=== PATIENT | male | born 1995 | race Caucasian/White ===

== ENCOUNTER 2023-06-24 20:59 | Inpatient (IN) | payer MEDICAID, SELFPAY ==
[2023-06-24 21:00] VITALS: BP 175/106; PULSE 119; RESP 18; TEMP 36.8; O2SAT 100; BMI 41.5
--- NOTE | 2023-06-24 21:20 | EX.ED.DYSGE1 ---
HPI <BUCKY Liz - Last Filed: 06/24/23 22:03> History of Present Illness Chief Complaint: Substance Abuse Narrative Narrative: Patient is a 27-year-old male with history of hepatitis C, followed by alcoholism who is been drinking heavily for the last 5 years. Patient states that he drinks 4 to 5 24 ounce [place] Hard Lemonade, patient also uses whiskey 3-4 shots a day. The last time patient went through a detox program was 2 years ago. Patient states that he has been more emotional lately, he states he is tired all the time. Every time he gets up in the morning he does vomit. He does continue to have chronic abdominal pain secondary to hepatitis. He does have a PCP. He does smoke cigarettes as well as uses mouth tobacco. Patient's last drink was right before coming into the emergency department. PFSH <BUCKY Liz - Last Filed: 06/24/23 22:03> [facility] Medical History (Updated 06/24/23 @ 22:[address] Alpa Diaz, DO) Alcohol abuse Hepatitis C Morbid obesity Tobacco abuse Allergy/AdvReac Type Severity Reaction Status Date / Time No Known Allergies Allergy Verified 06/24/23 21:02 Social History Smoking Status: Current every day smoker tobacco type: cigarettes ROS <BUCKY Liz - Last Filed: 06/24/23 22:03> ROS ED ROS Narrative Constitutional: Negative for fever, chills, weight loss, weakness. Positive for generalized fatigue Eyes: Negative for vision loss, vision change, double vision ENT: Negative for any sore throat, ear pain, congestion Cardiovascular: Negative for any chest pain, tightness, palpitations Respiratory: Negative for any cough, sputum production, hemoptysis, dyspnea, dyspnea on exertion, orthopnea Gastrointestinal: Negative for any nausea, vomiting, diarrhea, constipation, blood in stool, blood in vomit. Positive for abdominal pain that is chronic : Negative for any urinary frequency, dysuria, retention, blood in urine Muscle skeletal: Negative for any myalgias, arthralgias, neck pain, back pain Neurological: Negative for any headache, syncope, paresthesias, dizziness Skin: Negative for any rashes, lumps, itching, abrasions, lacerations Psychiatric: Negative for any depression, anxiety, stress, suicidal ideation, homicidal ideation Hematologic: Negative for any easy bruising, excessive bruising, easy bleeding Allergies: Negative for any eczema, hives, rash EXAM <BUCKY Liz - Last Filed: 06/24/23 22:03> Physical Exam Narrative Exam Narrative: Vital signs reviewed. HEET: Head normocephalic atraumatic, TMs clear bilaterally. Posterior pharynx is clear, dry mucous membranes. Nares clear bilaterally. Sclera icterus Neck: Supple with no lymphadenopathy or tenderness. No signs of meningismus. Cardiac: Regular rate and rhythm no murmurs gallops or rubs, equal peripheral pulses bilaterally. Respiratory: Lungs clear to auscultation bilaterally. No chest tenderness. Abdomen: Soft, nontender, nondistended. No abdominal bruit or pulsatile masses. No hepatosplenomegaly Extremities: No peripheral edema, no signs of gross trauma or deformity. Active full range of motion of all extremities. Neuro: Cranial nerves II through XII intact, no focal neurological deficits. Skin: Clean dry and intact with no rash, purpura, petechiae, vesicles or pustules. Patient does have slight jaundice appearance Backs/flank: No CVA tenderness, no midline spinal tenderness, no deformity. Psych: Normal mood and affect. No SI, HI or acute psychosis. Const Vital Signs: 06/24/23 21:00 Temperature 98.3 F Temperature Source Temporal Pulse Rate 119 H Respiratory Rate 18 Blood Pressure 175/106 H Blood Pressure Mean 129 Pulse Ox 100 Oxygen Delivery Method Room Air Positive well nourished, well developed and obese General Appearance ED: well developed Nutritional Appearance: obese <Dr. Ozzy Johnson MD - Last Filed: 06/24/23 22:34> Physical Exam Const Vital Signs: 06/24/23 21:00 Temperature 98.3 F Temperature Source Temporal Pulse Rate 119 H Respiratory Rate 18 Blood Pressure 175/106 H Blood Pressure Mean 129 Pulse Ox 100 Oxygen Delivery Method Room Air MDM <BUCKY Liz - Last Filed: 06/24/23 22:03> MDM Lab Data Labs: Laboratory Results - last 24 hr 06/24/23 06/24/23 21:19 21:28 WBC 8.9 RBC 3.61 L Hgb 11.3 L Hct 33.6 L MCV 93.1 MCH 31.3 MCHC 33.6 RDW Std Deviation 48.0 H RDW Coeff of Shaniqua 14.1 Plt Count 67 L MPV 11.2 Immature Gran % (Auto) 0.400 Neut % (Auto) 65.2 Lymph % (Auto) 24.7 [place] % (Auto) 7.8 Eos % (Auto) 1.2 Baso % (Auto) 0.7 Absolute Neuts (auto) 5.8 Absolute Lymphs (auto) 2.20 Nucleated RBC % 0 Differential Comment SCANNED Sodium 133 L Potassium 3.1 L Chloride 97 L Carbon Dioxide 28.0 Anion Gap 8 BUN 3 L Creatinine 1.06 Estim Creat Clear Calc 136.63 Est GFR (MDRD) Af Amer 109 Est GFR (MDRD) Non-Af 90 BUN/Creatinine Ratio 2.8 L Glucose 219 H Calcium 8.6 Total Bilirubin 8.00 H Direct Bilirubin 3.96 H AST 180 H ALT 45 Alkaline Phosphatase 109 Total Protein 9.4 H Albumin 2.9 L Globulin 6.5 H Urine Opiates Screen NEGATIVE Urine Methadone Screen NEGATIVE Ur Barbiturates Screen NEGATIVE Ur Phencyclidine Scrn NEGATIVE Ur Amphetamines Screen NEGATIVE MDMA (Ecstasy) Screen NEGATIVE U Benzodiazepines Scrn NEGATIVE Urine Cocaine Screen NEGATIVE U Cannabinoids Screen NEGATIVE Ur Drug Screen Comment Ethyl Alcohol 264.0 Treatment and Re-Evaluation :: Patient appears to be in no obvious respiratory distress. Patient presents to the emergency department for complaints of detox from alcohol. Patient differential diagnosis includes alcohol withdrawal, alcohol intoxication, hepatitis C, hyperbilirubinemia, anxiety, depression. At this time, patient will be given IV fluids, nicotine patch. Patient will receive laboratory values including EtOH as well as liver panel. Patient is alcohol is 264, the remainder of the toxicology screen was negative. Patient's CBC showed slight anemia with a hemoglobin 11.3. Patient's chemistry panel shows a potassium 3.1, sodium 133, total bilirubin is 8.0 with a direct bilirubin of 3.96. AST is 180. This does coincide with hepatitis C as well as alcohol abuse. PT/INR will be ordered. Patient was given a nicotine patch. At this time, I spoke with hospitalist, patient be admitted to the hospital. <Dr. Ozzy Johnson MD - Last Filed: 06/24/23 22:34> [facility] Narrative Medical decision making narrative: I have personally performed a face to face assessment of the patient and have reviewed the TYREL Note. I performed a substantive portion of the visit including all aspects of the following. My roberts findings include: History: Patient is here for alcohol detox. He states he has been drinking on daily basis for 5 or 6 years. He will have 4 to 6 24 ounce fortified 8% beers a day along with about a half bottle of liquor. If he does not drink he gets shaky and nauseated. He has to drink before work. He also has a history of hepatitis C. He evidently started a medication recently for this. I note that he looks a little jaundiced and his mother says that she thinks this has increased slightly over the last month or so. But he is having no hepatic area pain or abdominal pain. Mom also reports that he had a head bleed when he was born and had seizures when he was younger. But he has not had a seizure since he was 15. Patient is not having no headache symptoms at all. No recent trauma. There is family history of addiction and his father has drug addiction problems. Exam: Patient is awake alert no acute distress. He is calm. No flight of ideas. He does have some icterus. Lungs are clear. Heart rate is a little bit quick. Abdomen is obese but benign. I get no tenderness including right upper quadrant. Patient is oriented. No hallucinations. No piloerection noted. Medical Decision Making: Patient will have medical evaluation. I suspect his bilirubin is going to be elevated. Plan will be admission for detox. Lab Data Labs: Laboratory Results - last 24 hr 06/24/23 06/24/23 21:19 21:28 WBC 8.9 RBC 3.61 L Hgb 11.3 L Hct 33.6 L MCV 93.1 MCH 31.3 MCHC 33.6 RDW Std Deviation 48.0 H RDW Coeff of [place] 14.1 Plt Count 67 L MPV 11.2 Immature Gran % (Auto) 0.400 Neut % (Auto) 65.2 Lymph % (Auto) 24.7 [place] % (Auto) 7.8 Eos % (Auto) 1.2 Baso % (Auto) 0.7 Absolute Neuts (auto) 5.8 Absolute Lymphs (auto) 2.20 Nucleated RBC % 0 Differential Comment SCANNED Sodium 133 L Potassium 3.1 L Chloride 97 L Carbon Dioxide 28.0 Anion Gap 8 BUN 3 L Creatinine 1.06 Estim Creat Clear Calc 136.63 Est GFR (MDRD) Af Amer 109 Est GFR (MDRD) Non-Af 90 BUN/Creatinine Ratio 2.8 L Glucose 219 H Calcium 8.6 Total Bilirubin 8.00 H Direct Bilirubin 3.96 H AST 180 H ALT 45 Alkaline Phosphatase 109 Total Protein 9.4 H Albumin 2.9 L Globulin 6.5 H Urine Opiates Screen NEGATIVE Urine Methadone Screen NEGATIVE Ur Barbiturates Screen NEGATIVE Ur Phencyclidine Scrn NEGATIVE Ur Amphetamines Screen NEGATIVE MDMA (Ecstasy) Screen NEGATIVE U Benzodiazepines Scrn NEGATIVE Urine Cocaine Screen NEGATIVE U Cannabinoids Screen NEGATIVE Ur Drug Screen Comment Ethyl Alcohol 264.0 Discharge Plan Dx/Rx/DC Orders Clinical Impression: Hyperbilirubinemia, Elevated ETOH level, Acholuric jaundice, Hepatitis C Disposition Disposition: Acute Care [facility], [place]
[2023-06-24 21:39] LABS: Absolute Neutrophil Count 5.8 X10^3/uL (2.0-7.7); Basophil# 0.06 X10^3/uL; Basophil% 0.7 % (0-1); Eosinophil# 0.11 X10^3/uL; Eosinophils% 1.2 % (0-5); Hematocrit 33.6 % (40-54); Hemoglobin 11.3 g/dL (13.0-16.5); Lymphocyte % 24.7 % (19-41); Mean Corp Hgb Conc 33.6 g/dL (32-36); Mean Corpuscular Hgb 31.3 pg (27.0-32.0); Mean Corpuscular Volume 93.1 fL (80-94); Mean Platelet Vol. 11.2 fl (6.2-12.0); Monocyte% 7.8 % (0-10); NRBC Flagged by Analyzer 0 % (0-5); Neutrophil # 5.81 X10^3/uL (2.7-7.7); Neutrophil % 65.2 % (47-70); POSITIVE COUNT YES; Platelet Count 67 K/mm3 (150-450); RBC Distribution Width CV 14.1 % (11.6-14.6); Red Blood Count 3.61 M/mm3 (4.6-6.2); White Blood Count 8.9 K/mm3 (4.4-11.0)
[2023-06-24] MEDS: 0.9% Normal Saline (1000mL) 1,000 ML 999 ML IV (21:39)
[2023-06-24 21:47] LABS: Amphetamine Urine VISTA NEGATIVE (<1000 ng/mL); Barbiturate Urine VISTA NEGATIVE (< 200 ng/mL); Benzodiazepine Urine VISTA NEGATIVE (< 200 ng/mL); Cocaine Urine VISTA NEGATIVE (< 300 ng/mL); Ecstacy Urine VISTA NEGATIVE (< 500 ng/mL); Methadone Urine VISTA NEGATIVE (< 300 ng/mL); PCP Urine VISTA NEGATIVE (< 25 ng/mL); THC Urine VISTA NEGATIVE (< 50 ng/mL); Vista UDS pH Range 5
[2023-06-24 21:54] LABS: AST(SGOT) 180 U/L (15-37); Alanine Aminotransfer ALT/SGPT 45 U/L (16-61); Albumin, Serum 2.9 g/dL (3.2-5.0); Alkaline Phosphatase 109 U/L (45-117); Anion Gap 8 (5-15); BUN 3 mg/dL (7-18); BUN/Creat Ratio 2.8 RATIO (10-20); Bilirubin, Direct 3.96 mg/dL (0.00-0.30); Calcium,Total 8.6 mg/dL (8.5-10.1); Chloride 97 mmol/L (98-107); Creatinine, Serum 1.06 mg/dL (0.70-1.30); EST Glomerular Filtration Rate 90 mL/min (>60); Est Glom Filt Rate - Afr Amer 109 mL/min (>60); Estimated Creatinine Clearance 136.63 ml/min; Globulin 6.5 g/dL (2.2-4.2); Glucose 219 mg/dL (74-106); Potassium 3.1 mmol/L (3.5-5.1); Protein, Total 9.4 g/dL (6.4-8.2); Sodium Level 133 mmol/L (136-145)
[2023-06-24 21:59] LABS: Differential Indicated SCAN CRITERIA MET
--- NOTE | 2023-06-24 22:08 | US_ITS ---
EXAM: US abdomen, limited, right upper quadrant. HISTORY: elevated bilirubin TECHNIQUE: US Abdomen Limited (quadrant) COMPARISON: None. LIMITATIONS: Body habitus. LIVER Size: Liver is enlarged measuring 24.5 cm in length. Masses: None. Contour: Normal. Echotexture: Increased parenchymal echogenicity indicating fatty infiltration. Bile ducts: Normal. Portal veins: Normal. Normal hepatopedal flow. GALLBLADDER Size: Gallbladder is elongated measuring 13.4 cm in length by 3.2 cm in transverse diameter. Stones/sludge: None. Wall thickness: Borderline thickening of the wall which measures 3.4 mm in thickness. Pericholecystic fluid: None. Sonographic Hernandez sign: Negative. EXTRAHEPATIC BILE DUCTS: Normal. Common bile duct measures 5.1 mm in diameter. RIGHT KIDNEY: Normal. Right kidney measures 12.5 cm in length. No hydronephrosis. ASCITES: None. PLEURAL EFFUSIONS: None. OTHER: Visualized pancreas is unremarkable. US/Liver IMPRESSION: Enlarged fatty liver. No gallstones or biliary ductal dilatation. Electronically Signed: Justyn Rothman MD at 0:08 EST ,
--- NOTE | 2023-06-24 22:08 | HP.PCM.HOS_ITS ---
HPI - General General Date of Admission: 06/24/23 Date of Service: 06/24/23 Chief Complaint: Alcohol detox HPI Narrative BREEZY RIVERA, is a 27 M who presented to the emergency department hospital on 06/24/2021 requesting detox from alcohol. Patient reports about 2 to 3 years ago he was admitted to a rehab center after he got a DUI but did not have any long- lasting sobriety after that. He is currently drinking about 5 [place] hard lemona de daily that are 24 ounces as well as a half 1/5-1/5 of his last drink was 2 hours prior to presentation. He does state he has 7 drinks in the morning as he starts to feel nauseated and will intermittently vomit. Drinking helps resolve the symptoms. He has never had withdrawal seizures. He also admits to having hepatitis C which she obtained from tattoos that he got from his father as they share needles and his father was hepatitis C positive from previous drug use. He is currently undergoing treatment for his hepatitis C but is unable to remember the exact name of the medication. He denies any other drug use but does admit to tobacco use both smoking and chewing. Patient states he does take more medications besides his metformin and his antiviral for his hepatitis C but is unable to remember at this time. He indicates he will get a medication list for us from his mother. Vital signs on presentation demonstrated temperature of 98.3, heart rate 119, blood pressure 175/106, respiratory rate was 18 oxygen saturation is 100% on room air. CBC shows a normal white count however he has a mild anemia that is normocytic with a hemoglobin of 11.3. His platelet count is 67,000. Baseline is unknown. Coags are abnormal with a PT of 20.3 and an INR of 1.7. Chemistry panel shows sodium of 133, potassium 3.1. Renal function is normal. His blood glucose level is markedly elevated at 219. AST is 180 with a normal ALT however his bilirubin is markedly elevated at 8.0 with a direct bilirubin of 3.96. Toxicology screen is unremarkable but alcohol level was 264 on presentation. [facility] Medical History (Updated 06/24/23 @ 23:[address] Alpa Diaz, DO) Alcohol abuse Diabetes mellitus, type 2 Hepatitis C Morbid obesity Tobacco abuse Allergy/AdvReac Type Severity Reaction Status Date / Time No Known Allergies Allergy Verified 06/24/23 21:02 Family History (Updated 06/24/23 @ 23:[address] Alpa Diaz DO) Other Alcoholism Hypertension no surgical history Social History (Updated 06/24/23 @ 23:[address] Alpa Diaz DO) household members: family housing: house current occupation: Drives a forklift at a [employer] Smoking Status: Current every day smoker tobacco type: cigarettes Smoking packs per day: 1 Smoking cigarettes per day: 20.0 Smokeless tobacco user: chewing tobacco alcohol intake: current details: 5 24 ounce [place] hard lemonade and 12-05/28 of whiskey daily substance use type: does not use what type of physical activity do you participate in: none ROS Constitutional Constitutional: Denies anorexia, change in weight, chills, fatigue, fever(s), malaise, night sweats, weakness or other Eyes Eyes: Denies blurry vision, change in eye color, change in vision, discharge from eye(s), double vision, erythema, eye pain, loss of vision or other ENT HEENT: Denies abnormal hearing, dysphagia, ear pain, epistaxis, headache(s), hearing loss, nasal congestion, nasal discharge, post nasal drip, sinus pressure, sore throat or other Cardiovascular Cardiovascular: Denies chest pain, claudication, dyspnea on exertion, edema, lightheadedness, orthopnea, palpitations, paroxysmal nocturnal dyspnea, rapid heart rate, syncope or other Respiratory/Chest Respiratory/Chest: Denies cough, dyspnea, excessive phlegm production, hemoptysis, productive cough, shortness of breath at rest, shortness of breath with exertion, wheezing or other Gastrointestinal Gastrointestinal: Reports abdominal pain and nausea; Denies coffee ground emesis, constipation, diarrhea, dyspepsia, hematemesis, hematochezia, loose stools, melena, vomiting or other Genitourinary Genitourinary: Denies burning urination, difficulty urinating, dysuria, hematuria, nocturia, urinary frequency, urinary hesitancy, urinary incontinence, urinary urgency or other Musculoskeletal Musculoskeletal: Denies arthralgias, back pain, joint pain, joint stiffness, joint swelling, myalgias, neck pain or other Neurologic Neurologic: Denies abnormal gait, abnormal speech, confusion, disequilibrium, dizziness, focal weakness, headache(s), numbness, paresthesias, seizure-like activity, seizures, syncope, tingling, tremor(s) or other Psychiatric Psychiatric: Reports anxiety and depression; Denies homicidal ideation, suicidal ideation or other Endocrine Endocrinology: Denies change in body appearance, cold intolerance, excessive sweating, heat intolerance, polydipsia, polyuria or other Hematologic/Lymphatic Hematologic/Lymphatic: Reports easy bruising; Denies anemia, easy bleeding, lymphadenopathy or other Allergic/Immunologic Allergic/Immunologic: Denies rhinitis, hives, eczemia, asthma or other Vital Signs Vital Signs Vital Signs: 06/24/23 21:00 Temperature 98.3 F Temperature Source Temporal Pulse Rate 119 H Respiratory Rate 18 Blood Pressure 175/106 H Blood Pressure Mean 129 Pulse Ox 100 Oxygen Delivery Method Room Air Weight Weight: 124.086 kg Body Mass Index (BMI) 41.5 Physical Exam Const alert, oriented x3, no apparent distress and well nourished; Negative for average body habitus or healthy appearing Constitutional Narrative: Morbidly obese, young, white male, sitting up in bed, appears comfortable and nontoxic, no signs of tremor, interacts appropriately General Appearance: cooperative HEENT normocephalic, head/scalp atraumatic, hearing grossly normal bilaterally and moist oral mucous membranes HEENT Narrative: Mallampati 3, dentition is good, no thrush Eyes PERRL, EOMs intact bilaterally and conjunctivae normal Eyes Narrative: Scleral icterus noted Neck no lymphadenopathy and supple Neck Narrative: Trachea midline, no thyroid enlargement, neck is short and thick Cardio regular rhythm, S1 normal heart sound, S2 normal heart sound, no murmurs, no rub, no gallops and no clicks Cardio Narrative: Tachycardic GI normal to inspection, nondistended, normoactive bowel sounds and soft to palpation GI Narrative: Mild diffuse tenderness with most notably noted in the epigastrium and right upper quadrant Extremity no clubbing, cyanosis or edema Extremity Narrative: Pedal pulses are 2+ Skin no wounds, skin turgor normal, No no jaundice and no mottling Skin Narrative: Mild jaundice noted, few scattered ecchymotic areas noted Neuro oriented x3, CN's II-XII intact bilaterally, moves all extremities and no focal motor deficits Neuro Narrative: No tremor noted Speech: speech normal Psych affect normal Psych Narrative: Very pleasant, interacts appropriately, appears mildly anxious Mood & Affect: anxious Results Lab / Micro Data Attestation: I reviewed the patient's lab results. 06/24/23 21:28 06/24/23 21:28 Labs: Laboratory Results - last 24 hr 06/24/23 21:19: Urine Opiates Screen NEGATIVE, Urine Methadone Screen NEGATIVE, Ur Barbiturates Screen NEGATIVE, Ur Phencyclidine Scrn NEGATIVE, Ur Amphetamines Screen NEGATIVE, MDMA (Ecstasy) Screen NEGATIVE, U Benzodiazepines Scrn NEGATIVE, Urine Cocaine Screen NEGATIVE, U Cannabinoids Screen NEGATIVE, Ur Drug Screen Comment 06/24/23 21:28: WBC 8.9, RBC 3.61 L, Hgb 11.3 L, Hct 33.6 L, MCV 93.1, MCH 31.3, MCHC 33.6, RDW Std Deviation 48.0 H, RDW Coeff of [place]iqua 14.1, Plt Count 67 L, MPV 11.2, Immature Gran % (Auto) 0.400, Neut % (Auto) 65.2, Lymph % (Auto) 24.7, [place] % (Auto) 7.8, Eos % (Auto) 1.2, Baso % (Auto) 0.7, Absolute Neuts (auto) 5.8, Absolute Lymphs (auto) 2.20, Nucleated RBC % 0, Sodium 133 L, Potassium 3.1 L, Chloride 97 L, Carbon Dioxide 28.0, Anion Gap 8, BUN 3 L, Creatinine 1.06, Estim Creat Clear Calc 136.63, Est GFR (MDRD) Af Amer 109, Est GFR (MDRD) Non-Af 90, BUN/Creatinine Ratio 2.8 L, Glucose 219 H, Calcium 8.6, Total Bilirubin 8.00 H, Direct Bilirubin 3.96 H, AST 180 H, ALT 45, Alkaline Phosphatase 109, Total Protein 9.4 H, Albumin 2.9 L, Globulin 6.5 H, Ethyl Alcohol 264.0 Assessment & Plan Assessment/Plan (1) Hyperbilirubinemia: (2) Elevated ETOH level: (3) Acholuric jaundice: (4) Tachycardia: (5) Anemia: (6) Thrombocytopenia: (7) Elevated blood pressure reading: (8) Hypokalemia: (9) Hyponatremia: (10) Hyperglycemia: (11) Alcoholic hepatitis: PLAN: Plan Alcohol detox with pending alcohol withdrawal -Patient was legally intoxicated on presentation with a blood alcohol level of 264 -Rest of his toxicology screen was negative -Start phenobarbital taper -Thiamine and folate -Supportive medication for symptom management -CIWA with as needed Ativan for any breakthrough withdrawal symptoms -Consult 180 for assistance with discharge planning Tachycardia/Elevated blood pressure -Suspect related to acute withdrawal -Continue to monitor -As needed hydralazine available for systolic pressures that are consistently greater than 160 -Continue to monitor -If antihypertensive needed lisinopril would likely be a choice with his history of diabetes DM-2 with hyperglycemia -Patient is on metformin at home and states he takes this fairly regularly however does admit to missing a few doses intermittently -Check hemoglobin A1c -Lantus 16 units at at bedtime as he will be on steroids for alcoholic hepatitis -Accu-Cheks as ordered -SSI -Carb controlled diet Hyponatremia -Mild -Baseline is unclear however this may be acute related to his alcohol use -Repeat lab in a.m. Hypokalemia -40 mEq p.o. potassium given -Check a.m. magnesium level -Repeat lab in a.m. Anemia -Would not typically expect a 27-year-old male to be anemic and less there was something causing some blood loss -Baseline unknown -Check iron studies -Check guaiac stool -Start Protonix 20 mg daily orally Thrombocytopenia -Suspect chronic however unknown -Platelet count of 67,000 -Anticipate the patient may have cirrhosis and his thrombocytopenia may be related to splenomegaly due to sequestration versus marrow toxicity from alcohol -Repeat CBC in a.m. Alcoholic hepatitis with hyperbilirubinemia with jaundice -Baseline liver functions and bilirubin is unknown -Check INR -Maddrey score is 32.8 -Start prednisone 40 mg daily -Check right upper quadrant ultrasound -GI consultation pending History hepatitis C -Patient reports she has being treated currently but currently unable to remember which medication -Imaging pending -GI consult pending Morbid obesity -BMI 41.6 -Recommend weight loss -Complicates treatment, prognosis, outcomes DVT prophylaxis -Low risk -Recommend early and frequent ambulation CODE STATUS Full code Charges/Coding Visit Charges Inpatient E&M: 58249 Init Hosp L3
[2023-06-24 22:13] VITALS: BP 150/81; PULSE 115; RESP 22; O2SAT 99
[2023-06-24 22:29] LABS: Differential Comment SCANNED
--- NOTE | 2023-06-24 22:32 | ED.RN ---
Pt is unaware of home medications.
[2023-06-24 22:35] LABS: International Normalized Ratio 1.7; Prothrombin Time (Protime)PT. 20.3 SECONDS (11.7-14.9)
--- NOTE | 2023-06-24 22:35 | ED.RN ---
Update given to pt mother about plan of care.
[2023-06-24 22:36] LABS: Ferritin 729 ng/mL (26-388); Iron 138 ug/dL (65-175); Iron Binding Capacity,Total 142 ug/dL (250-450); PERCENT IRON SATURATION 97.2 % (15.0-55.0)
[2023-06-24 22:50] LABS: Hemoglobin A1c 5.4 % (3.8-5.6)
[2023-06-24 23:12] VITALS: BMI 40.6
[2023-06-24 23:18] VITALS: BP 144/86; PULSE 113; RESP 18; TEMP 37.2; O2SAT 97
[2023-06-24] MEDS: Phenobarbital 32.4 MG Tablet 64.7999999999999972 MG PO (23:33)
[2023-06-24] MEDS: hydrOXYzine PAM 25 MG Capsule 50 MG PO (23:33)
[2023-06-24] MEDS: Potassium Chloride Oral Tablet 20 MEQ 60 MEQ PO (23:33)
[2023-06-24] MEDS: predniSONE 20 MG Tablet 40 MG PO (23:33)
[2023-06-25 00:15] LABS: Bedside Glucose 110 mg/dL (74-106)
[2023-06-25] MEDS: Phenobarbital 32.4 MG Tablet 64.7999999999999972 MG PO ×6 (02:27→22:25)
[2023-06-25 06:15] VITALS: BP 160/83; PULSE 104; RESP 16; TEMP 37; O2SAT 97
[2023-06-25 06:20] LABS: Hematocrit 31.5 % (40-54); Hemoglobin 10.9 g/dL (13.0-16.5); Mean Corp Hgb Conc 34.6 g/dL (32-36); Mean Corpuscular Hgb 32.4 pg (27.0-32.0); Mean Corpuscular Volume 93.8 fL (80-94); Mean Platelet Vol. 11.1 fl (6.2-12.0); POSITIVE COUNT YES; Platelet Count 59 K/mm3 (150-450); RBC Distribution Width SD 47.6 fl (35.1-43.9); Red Blood Count 3.36 M/mm3 (4.6-6.2); White Blood Count 5.7 K/mm3 (4.4-11.0)
[2023-06-25] MEDS: Insulin Lispro 100 UNIT/ML INSULN.PEN SC (06:33)
[2023-06-25] MEDS: hydrOXYzine PAM 25 MG Capsule 50 MG PO ×2 (06:33→22:25)
[2023-06-25 06:34] VITALS: BP 160/83; PULSE 104
[2023-06-25] MEDS: hydrALAZINE 20 MG/ML Vial 10 MG IV ×2 (06:34→15:38)
[2023-06-25] MEDS: 0.9% Saline Lock 10 ML Syringe IV ×2 (06:34→15:38)
[2023-06-25 06:35] LABS: Bedside Glucose 151 mg/dL (74-106)
[2023-06-25 06:38] LABS: ERROR RESULT FLAG YES
[2023-06-25 06:45] LABS: ALB/GLOB Ratio 0.4 RATIO (0.9-2.4); AST(SGOT) 166 U/L (15-37); Alanine Aminotransfer ALT/SGPT 41 U/L (16-61); Albumin, Serum 2.7 g/dL (3.2-5.0); Alkaline Phosphatase 107 U/L (45-117); Anion Gap 5 (5-15); BUN 3 mg/dL (7-18); BUN/Creat Ratio 3.8 RATIO (10-20); Calcium,Total 8.1 mg/dL (8.5-10.1); Chloride 102 mmol/L (98-107); Creatinine, Serum 0.79 mg/dL (0.70-1.30); EST Glomerular Filtration Rate 126 mL/min (>60); Est Glom Filt Rate - Afr Amer 152 mL/min (>60); Estimated Creatinine Clearance 180.92 ml/min; Globulin 6.1 g/dL (2.2-4.2); Glucose 152 mg/dL (74-106); Magnesium 1.9 mg/dL (1.6-2.6); Phosphorus 2.7 mg/dL (2.5-4.9); Potassium 3.9 mmol/L (3.5-5.1); Protein, Total 8.8 g/dL (6.4-8.2); Sodium Level 133 mmol/L (136-145)
[2023-06-25 08:56] VITALS: BP 163/99; PULSE 131; RESP 18; TEMP 37.1; O2SAT 98
[2023-06-25] MEDS: predniSONE 20 MG Tablet 40 MG PO (09:06)
[2023-06-25] MEDS: Folic Acid 1 MG Tablet PO (09:06)
[2023-06-25] MEDS: Gabapentin 300 MG Capsule PO (09:06)
[2023-06-25] MEDS: Pantoprazole Sodium 20 MG Tablet PO (09:06)
[2023-06-25] MEDS: Thiamine Hydrochloride 100 MG Tablet PO (09:06)
--- NOTE | 2023-06-25 10:54 | ADDICTION ---
clinician met with client to discuss sx's, hx of use, and further tx. client reported a need to remain sober and seek sober support in his life; mother and 2nd cousin. he also endorsed a need to get back to his sabianist beliefs/rastafari. client appears ambivalent towards buttermaker change and sobriety. client denied a need for further AoD tx. clinician discussed local tx options and advised client he could contact [facility] in the future for additional sober support or tx options. Client will have mother transport him home upon release.
[2023-06-25 11:44] LABS: Bedside Glucose 127 mg/dL (74-106)
--- NOTE | 2023-06-25 12:29 | PN.HOSP_ITS ---
Subjective Subjective No issues overnight, CIWA score 0 this morning Objective Data Objective Data Vital Signs: Vital Signs Temp Pulse Resp BP Pulse Ox O2 Del Method 98.7 F 131 H 18 163/99 H 98 Room Air 06/25/23 08:56 06/25/23 08:56 06/25/23 08:56 06/25/23 08:56 06/25/23 08:56 06/25/23 08:56 Oxygen Delivery Method Room Air Weight: 267 lb Body Mass Index (BMI) 40.6 Intake & Output: Intake and Output for Last 24 Hours 06/24/23 06/25/23 06/26/23 03:59 03:59 03:59 Intake Total 1100 / 1100 600 / 600 Balance 1100 / 1100 600 / 600 Lab / Micro Data 06/25/23 05:09 06/25/23 05:09 Labs: Laboratory Results - last 24 hr 06/24/23 21:19: Urine Opiates Screen NEGATIVE, Urine Methadone Screen NEGATIVE, Ur Barbiturates Screen NEGATIVE, Ur Phencyclidine Scrn NEGATIVE, Ur Amphetamines Screen NEGATIVE, MDMA (Ecstasy) Screen NEGATIVE, U Benzodiazepines Scrn NEGATIVE, Urine Cocaine Screen NEGATIVE, U Cannabinoids Screen NEGATIVE, Ur Drug Screen Comment 06/24/23 21:28: WBC 8.9, RBC 3.61 L, Hgb 11.3 L, Hct 33.6 L, MCV 93.1, MCH 31.3, MCHC 33.6, RDW Std Deviation 48.0 H, RDW Coeff of Shaniqua 14.1, Plt Count 67 L, MPV 11.2, Immature Gran % (Auto) 0.400, Neut % (Auto) 65.2, Lymph % (Auto) 24.7, [place] % (Auto) 7.8, Eos % (Auto) 1.2, Baso % (Auto) 0.7, Absolute Neuts (auto) 5.8, Absolute Lymphs (auto) 2.20, Nucleated RBC % 0, Differential Comment SCANNED, Sodium 133 L, Potassium 3.1 L, Chloride 97 L, Carbon Dioxide 28.0, Anion Gap 8, BUN 3 L, Creatinine 1.06, Estim Creat Clear Calc 136.63, Est GFR (MDRD) Af Amer 109, Est GFR (MDRD) Non-Af 90, BUN/Creatinine Ratio 2.8 L, Glucose 219 H, Hemoglobin A1c 5.4, Calcium 8.6, Iron 138, TIBC 142 L, Iron Saturation 97.2 H, Ferritin 729 H, Total Bilirubin 8.00 H, Direct Bilirubin 3.96 H, AST 180 H, ALT 45, Alkaline Phosphatase 109, Total Protein 9.4 H, Albumin 2.9 L, Globulin 6.5 H, Ethyl Alcohol 264.0 06/24/23 22:08: PT 20.3 H, INR 1.7 06/24/23 23:31: POC Glucose 110 H 06/25/23 05:09: WBC 5.7, RBC 3.36 L, Hgb 10.9 L, Hct 31.5 L, MCV 93.8, MCH 32.4 H, MCHC 34.6, RDW Std Deviation 47.6 H, RDW Coeff of Shaniqua 14.0, Plt Count 59 L, MPV 11.1, Sodium 133 L, Potassium 3.9, Chloride 102, Carbon Dioxide 26.0, Anion Gap 5, BUN 3 L, Creatinine 0.79, Estim Creat Clear Calc 180.92, Est GFR (MDRD) Af Amer 152, Est GFR (MDRD) Non-Af 126, BUN/Creatinine Ratio 3.8 L, Glucose 152 H, Calcium 8.1 L, Phosphorus 2.7, Magnesium 1.9, Total Bilirubin 7.10 H, AST 166 H, ALT 41, Alkaline Phosphatase 107, Total Protein 8.8 H, Albumin 2.7 L, Globulin 6.1 H, Albumin/Globulin Ratio 0.4 L 06/25/23 06:17: POC Glucose 151 H 06/25/23 11:23: POC Glucose 127 H Radiography Diagnostic Testing: Radiology Impression Liver Ultrasound 06/24/23 22:08 IMPRESSION: Enlarged fatty liver. No gallstones or biliary ductal dilatation. Electronically Signed: Justyn Rothman MD at 0:08 EST , Physical Exam Narrative General: Alert, Oriented x3, Cooperative, restless HEENT: Atraumatic, PERRLA, EOMI, Normocephalic scleral icterus Oral: Moist Mucosa Neck: Supple, No JVD Lungs: Clear to auscultation, Normal air movement, No rhonchi, No wheeze, No rales Cardiovascular: Regular rate, Regular Rhythm, Normal S1, Normal S2, No murmurs Abdomen: Soft, Non Tender, Non-Distended, No Hepato-splenomegaly Extremities: No edema, Capillary Refill Less than 3 Seconds Skin: No rashes, No breakdown, jaundice Musculoskeletal: No Tenderness to Palpation of Joints or Extremities Neurological: No focal neurological deficits, Motor Exam 5/5 strength througho ut, Sensory exam intact to light touch and pain Psych/Mental Status: Anxious, restless Assessment & Plan Assessment/Plan (1) Hyperbilirubinemia: (2) Acholuric jaundice: (3) Thrombocytopenia: (4) Elevated blood pressure reading: (5) Alcoholic hepatitis: PLAN: Plan 1. Alcohol detox in the setting of alcoholic hepatitis with hyperbilirubinemia/thrombocytopenia/hepatitis C ? Continue with the alcohol withdrawal protocol ? His Madrey score on admission was around 46, started on prednisone. Gastroenterology consulted ? Anemia is likely secondary to his chronic liver disease as this is thrombocytopenia will monitor ? Can resume his home hepatitis medication when able 2. DM2 ? A1c of 5.4 ? Continue with insulin ? Accu-Cheks ACHS ? We will monitor make adjustments as necessary DVT: Ambulation Charges/Coding Visit Charges Inpatient E&M: 79227 Subs Hosp L2
[2023-06-25 15:00] VITALS: BP 174/108; PULSE 125; RESP 16; TEMP 36.9; O2SAT 95
[2023-06-25 15:38] VITALS: PULSE 125
--- NOTE | 2023-06-25 16:01 | CON.PCM.GI_ITS ---
HPI Consult Data Date of Consult: 06/25/23 HPI Narrative Reason for Consultation: Alcoholic hepatitis HPI Narrative: BREEZY RIVERA, is a 27 M who presented to the emergency department hospital on 06/24/2021 requesting detox from alcohol. Patient reports about 2 to 3 years ago he was admitted to a rehab center after he got a DUI but did not have any long- lasting sobriety after that. He is currently drinking about 5 mikes hard lemonade daily that are 24 ounces as well as a half 1/5-1/5 of his last drink was 2 hours prior to presentation. He does state he has 7 drinks in the morning as he starts to feel nauseated and will intermittently vomit. Drinking helps resolve the symptoms. He has never had withdrawal seizures. He also admits to having hepatitis C which she obtained from tattoos that he got from his father as they share needles and his father was hepatitis C positive from previous drug use. He is currently undergoing treatment for his hepatitis C but is unable to remember the exact name of the medication. He denies any other drug use but does admit to tobacco use both smoking and chewing. Patient states he does take more medications besides his metformin and his antiviral for his hepatitis C but is unable to remember at this time. He indicates he will get a medication list for us from his mother. Vital signs on presentation demonstrated temperature of 98.3, heart rate 119, blood pressure 175/106, respiratory rate was 18 oxygen saturation is 100% on room air. CBC shows a normal white count however he has a mild anemia that is normocytic with a hemoglobin of 11.3. His platelet count is 67,000. Baseline is unknown. Coags are abnormal with a PT of 20.3 and an INR of 1.7. Chemistry panel shows sodium of 133, potassium 3.1. Renal function is normal. His blood glucose level is markedly elevated at 219. AST is 180 with a normal ALT however his bilirubin is markedly elevated at 8.0 with a direct bilirubin of 3.96. Toxicology screen is unremarkable but alcohol level was 264 on present ation. His LFTs are coming down today. [facility] Medical History (Updated 06/25/23 @ 16:[address] Peter Friend, ) Alcohol abuse Diabetes mellitus, type 2 Hepatitis C Morbid obesity Seizures Tobacco abuse Home Medications glecaprevir 100 mg-pibrentasvir 40 mg tablet (Mavyret) 3 tab PO DAILY liver 06/24/23 [History Last Taken Unknown] metformin 850 mg tablet 850 mg PO BID DM 06/24/23 [History Last Taken Unknown] omeprazole 40 mg capsule,delayed release 40 mg PO DAILY heartburn 06/24/23 [His tory Last Taken Unknown] potassium chloride 10 mEq tablet,extended release 10 meq PO BID potassium 0 06/24/23 [History Last Taken Unknown] Allergy/AdvReac Type Severity Reaction Status Date / Time No Known Allergies Allergy Verified 06/24/23 21:02 Family History (Updated 06/24/23 @ 23:[address] Alpa Diaz, DO) Other Alcoholism Hypertension Surgical History no surgical history Social History (Updated 06/24/23 @ 23:[address] 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 [employer] current gender identity: male Smoking Status: Current every day smoker tobacco type: cigarettes Smoking packs per day: 1 Smoking cigarettes per day: 20.0 and smokeless tobacco Smokeless tobacco user: chewing tobacco alcohol intake: current details: 5 24 ounce mikes hard lemonade and 1/2-1/5 of whiskey daily substance use type: does not use what type of physical activity do you participate in: none ROS Constitutional Constitutional: Denies anorexia, change in weight, chills, fatigue, fever(s), malaise, night sweats, weakness or other Eyes Eyes: Denies blurry vision, change in eye color, change in vision, discharge from eye(s), double vision, erythema, eye pain, loss of vision or other ENT HEENT: Denies abnormal hearing, dysphagia, ear pain, epistaxis, headache(s), hearing loss, nasal congestion, nasal discharge, post nasal drip, sinus press ure, sore throat or other Cardiovascular Cardiovascular: Denies chest pain, claudication, dyspnea on exertion, edema, lightheadedness, orthopnea, palpitations, paroxysmal nocturnal dyspnea, rapid heart rate, syncope or other Respiratory/Chest Respiratory/Chest: Denies cough, dyspnea, excessive phlegm production, hemoptysis, productive cough, shortness of breath at rest, shortness of breath with exertion, wheezing or other Gastrointestinal Gastrointestinal: Reports abdominal pain and nausea; Denies coffee ground emesis, constipation, diarrhea, dyspepsia, hematemesis, hematochezia, loose stools, melena, vomiting or other Genitourinary Genitourinary: Denies burning urination, difficulty urinating, dysuria, hematuria, nocturia, urinary frequency, urinary hesitancy, urinary incontinence, urinary urgency or other Musculoskeletal Musculoskeletal: Denies arthralgias, back pain, joint pain, joint stiffness, joint swelling, myalgias, neck pain or other Neurologic Neurologic: Denies abnormal gait, abnormal speech, confusion, disequilibrium, dizziness, focal weakness, headache(s), numbness, paresthesias, seizure-like activity, seizures, syncope, tingling, tremor(s) or other Psychiatric Psychiatric: Reports anxiety and depression; Denies homicidal ideation, suicidal ideation or other Endocrine Endocrinology: Denies change in body appearance, cold intolerance, excessive sweating, heat intolerance, polydipsia, polyuria or other Hematologic/Lymphatic Hematologic/Lymphatic: Reports easy bruising; Denies anemia, easy bleeding, lymphadenopathy or other Allergic/Immunologic Allergic/Immunologic: Denies rhinitis, hives, eczemia, asthma or other Lab / Micro Data 06/25/23 05:09 06/25/23 05:09 Labs: Laboratory Results - last 24 hr 06/24/23 21:19: Urine Opiates Screen NEGATIVE, Urine Methadone Screen NEGATIVE, Ur Barbiturates Screen NEGATIVE, Ur Phencyclidine Scrn NEGATIVE, Ur Amphetamines Screen NEGATIVE, MDMA (Ecstasy) Screen NEGATIVE, U Benzodiazepines Scrn NEGA TIVE, Urine Cocaine Screen NEGATIVE, U Cannabinoids Screen NEGATIVE, Ur Drug Screen Comment 06/24/23 21:28: WBC 8.9, RBC 3.61 L, Hgb 11.3 L, Hct 33.6 L, MCV 93.1, MCH 31.3, MCHC 33.6, RDW Std Deviation 48.0 H, RDW Coeff of Shaniqua 14.1, Plt Count 67 L, MPV 11.2, Immature Gran % (Auto) 0.400, Neut % (Auto) 65.2, Lymph % (Auto) 24.7, [place] % (Auto) 7.8, Eos % (Auto) 1.2, Baso % (Auto) 0.7, Absolute Neuts (auto) 5.8, Absolute Lymphs (auto) 2.20, Nucleated RBC % 0, Differential Comment SCANNED, Sodium 133 L, Potassium 3.1 L, Chloride 97 L, Carbon Dioxide 28.0, Anion Gap 8, BUN 3 L, Creatinine 1.06, Estim Creat Clear Calc 136.63, Est GFR (MDRD) Af Amer 109, Est GFR (MDRD) Non-Af 90, BUN/Creatinine Ratio 2.8 L, Glucose 219 H, Hemoglobin A1c 5.4, Calcium 8.6, Iron 138, TIBC 142 L, Iron S aturation 97.2 H, Ferritin 729 H, Total Bilirubin 8.00 H, Direct Bilirubin 3.96 H, AST 180 H, ALT 45, Alkaline Phosphatase 109, Total Protein 9.4 H, Albumin 2.9 L, Globulin 6.5 H, Ethyl Alcohol 264.0 06/24/23 22:08: PT 20.3 H, INR 1.7 06/24/23 23:31: POC Glucose 110 H 06/25/23 05:09: WBC 5.7, RBC 3.36 L, Hgb 10.9 L, Hct 31.5 L, MCV 93.8, MCH 32.4 H, MCHC 34.6, RDW Std Deviation 47.6 H, RDW Coeff of Shaniqua 14.0, Plt Count 59 L, MPV 11.1, Sodium 133 L, Potassium 3.9, Chloride 102, Carbon Dioxide 26.0, Anion Gap 5, BUN 3 L, Creatinine 0.79, Estim Creat Clear Calc 180.92, Est GFR (MDRD) Af Amer 152, Est GFR (MDRD) Non-Af 126, BUN/Creatinine Ratio 3.8 L, Glucose 152 H, Calcium 8.1 L, Phosphorus 2.7, Magnesium 1.9, Total Bilirubin 7.10 H, AST 166 H, ALT 41, Alkaline Phosphatase 107, Total Protein 8.8 H, Albumin 2.7 L, Globulin 6.1 H, Albumin/Globulin Ratio 0.4 L 06/25/23 06:17: POC Glucose 151 H 06/25/23 11:23: POC Glucose 127 H Imaging Radiology Impression Liver Ultrasound 06/24/23 22:08 IMPRESSION: Enlarged fatty liver. No gallstones or biliary ductal dilatation. Electronically Signed: Justyn Rothman MD at 0:08 EST , Assessment & Plan Assessment/Plan (1) Alcoholic hepatitis: PLAN: Controversy over the use of glucocorticoids in severe alcoholic hepatitis has persisted for many years despite the results of meta-analyses of selected trials.?In our study, the reduction in 28-day mortality observed among patients treated with prednisolone did not reach the conventional threshold of statistical significance, and no significant differences were observed in 90-day or 12-month outcomes. However, in a secondary analysis that included adjustments for baseline determinants of prognosis, a significant advantage with respect to 28-day mortality was seen with prednisolone. The survival differences may have been a chance finding or may represent a benefit of prednisolone for short-term mortality that did not translate to longer-term benefit. A recognized drawback of glucocorticoid use in patients with alcoholic hepatitis is increased susceptibility to infection.?The higher rate of infection among the patients treated with prednisolone was therefore expected, but mortality attributed to infection was similar across the groups, regardless of whether prednisolone was administered. Investigators attributed deaths to infection in 103 of 416 cases (24.8%), but infection also probably played a role in deaths attributed to other causes, such as multiorgan failure. Since infection plays such an important role in the outcome of alcoholic hepatitis, it is worth noting that in a trial published in 2011, the addition of?N-acetylcysteine to prednisolone was associated with a reduced rate of infection. His LFTs are improving. I do not think he needs steroids at this time because he has no signs or symptoms of encephalopathy. It was a patient said actually had encephalopathy that were shown to improve with steroid therapy in particular glucocorticoids. I think especially prudent and to hold it in him because he has chronic hepatitis C and he has thrombocytopenia possibly secondary to hepatitis C which can cause ITP and TTP. He also has massive that a hepatomegaly. Significant splenomegaly was not seen. I will get a CT scan abdomen pelvis to make sure there is no sign of hepatic or portal vein thrombosis secondary to chronic hepatitis C creating a vasculitis like syndrome resulting in thrombosis. (2) Thrombocytopenia: PLAN: Likely secondary to underlying chronic hepatitis C. (3) Hepatitis C: PLAN: Corticosteroids also appear to worsen the course of chronic hepatitis C, although in a less dramatic fashion than in chronic hepatitis B. Corticosteroid therapy leads to a rise in hepatitis C virus (HCV) RNA levels which may eventually cause worsening of the underlying liver disease. Chronic hepatitis C appears to be more severe and is particularly difficult to manage in patients receiving chemotherapy or immunosuppression, and corticosteroids are believed to be a major factor in this effect. Thus, corticosteroids should be avoided if possible in patients with underlying chronic viral hepatitis Charges/Coding Visit Charges Inpatient E&M: 03056 Init Hosp L3
--- NOTE | 2023-06-25 16:12 | CT_ITS ---
STUDY: CT ABDOMEN AND PELVIS WITH CONTRAST REASON FOR EXAM: Male, 27 years old. alcoholic hepatitis RADIATION DOSAGE (If Supplied By Facility): CTDIvol = ( 15.75 ) mGy, DLP = ( 1323.70 ) mGycm TECHNIQUE: Transaxial images were obtained from the dome of the diaphragm to the symphysis pubis without oral contrast. IV 100mL Isovue-300 was administered. Sagittal and coronal images were reconstructed. Individualized dose optimization techniques were used for this CT. COMPARISON: Abdominal ultrasound June 24, 2023 FINDINGS: The visualized lung bases are unremarkable. The visualized portions of the heart are within normal limits. Normal liver. Normal gallbladder and extrahepatic biliary system. 28 mm splenic cyst medially. Normal pancreas. Normal bilateral adrenal glands. Normal right kidney. Normal left kidney. Normal visualized stomach. Normal small intestine. Fibrofatty infiltration of the sigmoid. Stranding of the mesentery in the right lower quadrant. The appendix is visualized and appears normal. Normal abdominal aorta. Normal inferior vena cava. Prominent nonspecific retroperitoneal lymphadenopathy at the level of the kidneys measuring up to 14 mm 10 mm. Prominent portal caval nodes are also noted measuring up to 9 x 17 mm. Normal urinary bladder. Normal abdominal wall. Normal osseous structures. CT/Abdomen/Pelvis W IV Cont ONLY IMPRESSION: Acute inflammatory changes right lower quadrant but appendix appears normal. Prominent nonspecific retroperitoneal lymphadenopathy consistent with an infectious, inflammatory, or neoplastic etiologies. Nonspecific chronic and possibly acute colitis as above. Electronically Signed: Viraj Lizarraga MD at 17:35 EST ,
[2023-06-25 16:39] VITALS: BP 159/85; PULSE 133
[2023-06-25 16:46] LABS: Bedside Glucose 118 mg/dL (74-106)
[2023-06-25] MEDS: Carvedilol 3.125 MG TABLET PO (17:44)
[2023-06-25] MEDS: Ibuprofen 400 MG Tablet PO (18:37)
[2023-06-25] MEDS: GLECAPREVIR/PIBRENTASVIR 1 EACH TABLET 3 EACH PO (20:25)
[2023-06-25 22:45] LABS: Bedside Glucose 102 mg/dL (74-106)
[2023-06-26] MEDS: Phenobarbital 32.4 MG Tablet 64.7999999999999972 MG PO ×2 (03:11→06:12)
[2023-06-26 03:20] VITALS: BP 146/96; PULSE 105; RESP 18; TEMP 36.6; O2SAT 98
[2023-06-26] MEDS: hydrOXYzine PAM 25 MG Capsule 50 MG PO (06:11)
[2023-06-26 06:35] LABS: Bedside Glucose 90 mg/dL (74-106)
[2023-06-26 07:26] LABS: Absolute Lymphocyte Count 2.46 X10^3/uL (0.83-4.51); Absolute Neutrophil Count 3.8 X10^3/uL (2.0-7.7); Basophil# 0.03 X10^3/uL; Basophil% 0.4 % (0-1); Eosinophil# 0.03 X10^3/uL; Eosinophils% 0.4 % (0-5); Hematocrit 32.3 % (40-54); Hemoglobin 10.9 g/dL (13.0-16.5); Lymphocyte # 2.46 X10^3/ul (0.83-4.51); Lymphocyte % 35.6 % (19-41); Mean Corp Hgb Conc 33.7 g/dL (32-36); Mean Corpuscular Hgb 31.5 pg (27.0-32.0); Mean Corpuscular Volume 93.4 fL (80-94); Mean Platelet Vol. 11.9 fl (6.2-12.0); Monocyte# 0.56 X10^3/uL; Monocyte% 8.1 % (0-10); NRBC Flagged by Analyzer 0 % (0-5); Neutrophil # 3.78 X10^3/uL (2.7-7.7); Neutrophil % 54.8 % (47-70); POSITIVE COUNT YES; Platelet Count 62 K/mm3 (150-450); RBC Distribution Width CV 14.2 % (11.6-14.6); RBC Distribution Width SD 48.1 fl (35.1-43.9); Red Blood Count 3.46 M/mm3 (4.6-6.2); White Blood Count 6.9 K/mm3 (4.4-11.0)
[2023-06-26 07:52] LABS: ALB/GLOB Ratio 0.4 RATIO (0.9-2.4); AST(SGOT) 111 U/L (15-37); Alanine Aminotransfer ALT/SGPT 34 U/L (16-61); Albumin, Serum 2.6 g/dL (3.2-5.0); Alkaline Phosphatase 90 U/L (45-117); Anion Gap 6 (5-15); BUN 9 mg/dL (7-18); BUN/Creat Ratio 9.2 RATIO (10-20); Calcium,Total 9.1 mg/dL (8.5-10.1); Chloride 104 mmol/L (98-107); Creatinine, Serum 0.98 mg/dL (0.70-1.30); EST Glomerular Filtration Rate 98 mL/min (>60); Est Glom Filt Rate - Afr Amer 119 mL/min (>60); Estimated Creatinine Clearance 145.84 ml/min; Glucose 104 mg/dL (74-106); Potassium 3.5 mmol/L (3.5-5.1); Protein, Total 8.6 g/dL (6.4-8.2); Sodium Level 134 mmol/L (136-145)
[2023-06-26 08:25] VITALS: BP 149/98; PULSE 99; RESP 18; TEMP 36.4; O2SAT 96
[2023-06-26] MEDS: Carvedilol 3.125 MG TABLET PO (08:29)
[2023-06-26] MEDS: Pantoprazole Sodium 20 MG Tablet PO (08:29)
[2023-06-26] MEDS: Thiamine Hydrochloride 100 MG Tablet PO (08:29)
[2023-06-26] MEDS: Folic Acid 1 MG Tablet PO (08:29)
[2023-06-26 08:35] VITALS: PULSE 99
--- NOTE | 2023-06-26 10:03 | DCINST_ITS ---
Discharge Instructions Diet Discharge Diet: No restrictions Activity Discharge Activity: Return to Normal Activity Dressing / Incision Call your doctor if you observe: Fever of 101 or Higher, Shortness of breath, Dizziness, Fainting spells, Swelling in the ankles, Chest pain and Increased palpitations (irregular heartbeat) Follow Up Care Test Results: Test results from this visit will be discussed in further detail at your follow- up appointment, if applicable. Discharge Plan Admission Admit Date/Time: 06/24/23 22:00 Attending Provider: Asael Quarles Primary Care Provider: Gila George,Mendy Primary Consulting Providers: Alpa Diaz Instructions Additional Instructions / Restrictions: Will start her on blood pressure medication to control your heart rate and blood pressure. You do need to find a primary care physician as well as follow-up with gastroenterology or whoever prescribes your antiviral medication for your hepatitis C. Discharge Orders/Prescriptions Prescriptions: New carvedilol 3.125 mg Tablet 3.125 mg PO BID 30 Days Qty: 60 0RF Continued potassium chloride 10 mEq tablet extended release 10 meq PO BID Patient Comments: take 1 tablet by mouth twice a day omeprazole 40 mg capsule,delayed release(DR/EC) 40 mg PO DAILY Patient Comments: take 1 capsule by mouth once daily metformin 850 mg tablet 850 mg PO BID Patient Comments: take 1 tablet by mouth twice a day with meals Mavyret 100-40 mg tablet 3 tab PO DAILY Patient Comments: TAKE 3 TABLETS BY MOUTH EVERY DAY WITH EVENING MEAL Referrals / Follow Up: Care Physician,No Primary [Primary Care Provider] - NOT,DEFINED [Non-Staff] - Disposition Disposition (needs filled in before D/C Order can be placed): Home, Self Care
--- NOTE | 2023-06-26 10:39 | PCM.DC.SUM ---
Providers Date of Admission: 06/24/23 Primary Care Physician: Mendy Primary Care Phys Consultations 06/24/23 22:23 Consult: Gastroenterology Routine Consulting Provider: [facility] Reason for Consult: EtOH hepatitis with h/o Hep C EMERGENT Consult: No MD Notified: Yes Date Notified: 06/25/23 Time Notified: 06:40 Method of Notification: Text Comments:: Friend Reason For Visit: ETOH DETOX Diagnosis Discharge Diagnosis (1) Alcoholic hepatitis: Status: Acute Code(s): K70.10 - Alcoholic hepatitis without ascites (2) Thrombocytopenia: Status: Acute Code(s): D69.6 - Thrombocytopenia, unspecified (3) Hepatitis C: Status: Acute Code(s): B19.20 - Unspecified viral hepatitis C without hepatic coma Medications at Discharge Home Medications glecaprevir 100 mg-pibrentasvir 40 mg tablet (Mavyret) 3 tab PO DAILY liver 06/24/23 metformin 850 mg tablet 850 mg PO BID DM 06/24/23 omeprazole 40 mg capsule,delayed release 40 mg PO DAILY heartburn 06/24/23 potassium chloride 10 mEq tablet,extended release 10 meq PO BID potassium 06/24/23 carvedilol 3.125 mg tablet 3.125 mg PO BID 30 days #60 tabs 06/26/23 Hospital Course Operations None Procedures None Summary of Care Provided Minutes Spent on Discharge: 33 Hospital Course: Per HPI: BREEZY RIVERA, is a 27 M who presented to the emergency department hospital on 06/24/2021 requesting detox from alcohol. Patient reports about 2 to 3 years ago he was admitted to a rehab center after he got a DUI but did not have any long-lasting sobriety after that. He is currently drinking about 5 mikes hard lemonade daily that are 24 ounces as well as a half 1/5-1/5 of his last drink was 2 hours prior to presentation. He does state he has 7 drinks in the morning as he starts to feel nauseated and will intermittently vomit. Drinking helps resolve the symptoms. He has never had withdrawal seizures. He also admits to having hepatitis C which she obtained from tattoos that he got from his father as they share needles and his father was hepatitis C positive from previous drug use. He is currently undergoing treatment for his hepatitis C but is unable to remember the exact name of the medication. He denies any other drug use but does admit to tobacco use both smoking and chewing. Patient states he does take more medications besides his metformin and his antiviral for his hepatitis C but is unable to remember at this time. He indicates he will get a medication list for us from his mother. Vital signs on presentation demonstrated temperature of 98.3, heart rate 119, blood pressure 175/106, respiratory rate was 18 oxygen saturation is 100% on room air. CBC shows a normal white count however he has a mild anemia that is normocytic with a hemoglobin of 11.3. His platelet count is 67,000. Baseline is unknown. Coags are abnormal with a PT of 20.3 and an INR of 1.7. Chemistry panel shows sodium of 133, potassium 3.1. Renal function is normal. His blood glucose level is markedly elevated at 219. AST is 180 with a normal ALT however his bilirubin is markedly elevated at 8.0 with a direct bilirubin of 3.96. Toxicology screen is unremarkable but alcohol level was 264 on presentation. Hospital course: 1. Alcohol detox in the setting of acute alcoholic hepatitis with hyperbilirubinemia/thrombocytopenia/hepatitis C?27-year-old male presents to the hospital requesting detox. He was found to have acute alcoholic hepatitis and gastroenterology was consulted. Initially his Madrey score was elevated over 32 and was started on prednisone however this was discontinued under the advice of gastroenterology. He was continued on his hepatitis C medications. I discussed the case with gastroenterology on the day of discharge as the patient was requesting to go home as he did not want to complete the detox. They felt that he was okay for discharge as it will take several weeks to months for his bilirubin to return back to normal if he discontinues alcohol intake. I discussed with him the severity of his illness and the need to remain alcohol free otherwise he could anticipate worsening liver function and early mortality. I discussed with him the plan for discharge today he expressed understanding of the risk benefits of going home and wants to go home today. His plan is to follow-up with her [employer] [facility] for his rehab and that his mother's cousin will be his support person. 2. Hypertension?unclear if this is new onset or if it is situational however he had some improvement with Coreg so we will discharge him on 30 days of Coreg and have him follow-up with a primary care provider as an outpatient for monitoring and adjustment of his medication. 3. GERD, type 2 diabetes are chronic medical conditions which complicate his care. His home medications were continued where appropriate Physical Exam Narrative General: Alert, Oriented x3, Cooperative, restless HEENT: Atraumatic, PERRLA, EOMI, Normocephalic scleral icterus Oral: Moist Mucosa Neck: Supple, No JVD Lungs: Clear to auscultation, Normal air movement, No rhonchi, No wheeze, No rales Cardiovascular: Regular rate, Regular Rhythm, Normal S1, Normal S2, No murmurs Abdomen: Soft, Non Tender, Non-Distended, No Hepato-splenomegaly Extremities: No edema, Capillary Refill Less than 3 Seconds Skin: No rashes, No breakdown, jaundice Musculoskeletal: No Tenderness to Palpation of Joints or Extremities Neurological: No focal neurological deficits, Motor Exam 5/5 strength throughout, Sensory exam intact to light touch and pain Psych/Mental Status: Flat affect Weight / BMI Weight Weight: 267 lb Body Mass Index (BMI) 40.6 ABG / Lab / Microbiology Data 06/26/23 06:40 06/26/23 06:40 Laboratory: Laboratory Results - last 24 hr 06/25/23 11:23: POC Glucose 127 H 06/25/23 16:29: POC Glucose 118 H 06/25/23 22:24: POC Glucose 102 06/26/23 06:11: POC Glucose 90 06/26/23 06:40: WBC 6.9, RBC 3.46 L, Hgb 10.9 L, Hct 32.3 L, MCV 93.4, MCH 31.5, MCHC 33.7, RDW Std Deviation 48.1 H, RDW Coeff of Shaniqua 14.2, Plt Count 62 L, MPV 11.9, Immature Gran % (Auto) 0.700, Neut % (Auto) 54.8, Lymph % (Auto) 35.6, [place] % (Auto) 8.1, Eos % (Auto) 0.4, Baso % (Auto) 0.4, Absolute Neuts (auto) 3.8, Absolute Lymphs (auto) 2.46, Nucleated RBC % 0, Sodium 134 L, Potassium 3.5, Chloride 104, Carbon Dioxide 24.0, Anion Gap 6, BUN 9, Creatinine 0.98, Estim Creat Clear Calc 145.84, Est GFR (MDRD) Af Amer 119, Est GFR (MDRD) Non-Af 98, BUN/Creatinine Ratio 9.2 L, Glucose 104, Calcium 9.1, Total Bilirubin 8.20 H, AST 111 H, ALT 34, Alkaline Phosphatase 90, Total Protein 8.6 H, Albumin 2.6 L, Globulin 6.0 H, Albumin/Globulin Ratio 0.4 L Radiography Diagnostic Testing: Radiology Impression Abdomen/Pelvis CT 06/25/23 16:12 IMPRESSION: Acute inflammatory changes right lower quadrant but appendix appears normal. Prominent nonspecific retroperitoneal lymphadenopathy consistent with an infectious, inflammatory, or neoplastic etiologies. Nonspecific chronic and possibly acute colitis as above. Electronically Signed: Viraj Lizarraga MD at 17:35 EST Reading Location ID and State: [facility] / [place] Tel , Service support , D/C Instructions Discharge Diet: No restrictions Call your doctor if you observe: Fever of 101 or Higher, Shortness of breath, Dizziness, Fainting spells, Swelling in the ankles, Chest pain and Increased palpitations (irregular heartbeat) Meaningful Use Info Meaningful Use Diagnoses (Choose all that apply): None applicable Discharge Plan Admission Admit Date/Time: 06/24/23 22:00 Attending Provider: Asael Quarles Primary Care Provider: Gila George,Mendy Primary Consulting Providers: Alpa Diaz Instructions Additional Instructions / Restrictions: Will start her on blood pressure medication to control your heart rate and blood pressure. You do need to find a primary care physician as well as follow-up with gastroenterology or whoever prescribes your antiviral medication for your hepatitis C. Discharge Orders/Prescriptions Prescriptions: New carvedilol 3.125 mg Tablet 3.125 mg PO BID 30 Days Qty: 60 0RF Continued potassium chloride 10 mEq tablet extended release 10 meq PO BID Patient Comments: take 1 tablet by mouth twice a day omeprazole 40 mg capsule,delayed release(DR/EC) 40 mg PO DAILY Patient Comments: take 1 capsule by mouth once daily metformin 850 mg tablet 850 mg PO BID Patient Comments: take 1 tablet by mouth twice a day with meals Mavyret 100-40 mg tablet 3 tab PO DAILY Patient Comments: TAKE 3 TABLETS BY MOUTH EVERY DAY WITH EVENING MEAL Referrals / Follow Up: Care Physician,No Primary [Primary Care Provider] - NOT,DEFINED [Non-Staff] - Disposition Disposition (needs filled in before D/C Order can be placed): Home, Self Care Charges/Coding Visit Charges Inpatient E&M: 96876 Disch Hosp >30min
[2023-06-26 10:45] VITALS: BP 139/73; PULSE 92; RESP 18; TEMP 36.7; O2SAT 95
== END 2023-06-26 13:03 | disposition home or self-care (01) | DRG 775 ==
LOC: ED 22:03 → MS3 22:10
PROVIDERS: Nurse Practitioner; Admitting Provider Internal Medicine; Emergency Provider Emergency Medicine; Visit Provider Family Medicine
DX: F10.239 Alcohol dependence with withdrawal, unspecified (principal); G93.40 Encephalopathy, unspecified; D69.6 Thrombocytopenia, unspecified; E11.65 Type 2 diabetes mellitus with hyperglycemia; D64.9 Anemia, unspecified; E87.1 Hypo-osmolality and hyponatremia; K70.10 Alcoholic hepatitis without ascites; E66.01 Morbid (severe) obesity due to excess calories; B18.2 Chronic viral hepatitis C; K74.60 Unspecified cirrhosis of liver; Z68.41 Body mass index [BMI] 40.0-44.9, adult; Z79.4 Long term (current) use of insulin; I10 Essential (primary) hypertension; F17.210 Nicotine dependence, cigarettes, uncomplicated; E87.6 Hypokalemia; K21.9 Gastro-esophageal reflux disease without esophagitis; R03.0 Elevated blood-pressure reading, without diagnosis of hypertension; Y90.8 Blood alcohol level of 240 mg/100 ml or more
CPT/HCPCS: 74177; 76705; 80048; 80053; 80076; 80307; 80320; 82728; 82962; 83036; 83540; 83550; 83735; 84100; 85025; 85027; 85610; 94668; 97802; 99252; 99284; 99406; J7030; Q9967; A4216; G0463; G0480